=== PATIENT | male | born 1950 | race Caucasian/White ===

== ENCOUNTER 2016-07-28 07:43 | Emergency (ER) | payer SELFPAY ==
[~2016-07-28 07:43] MED LIST: MEDROL DOSEPAK4 MG PO
[2016-07-28 07:53] VITALS: BP 206/90
[2016-07-28 08:20] LABS: BASO # 0.2 10*3/uL (0.0-0.1); BASO % 1.4 % (0.0-1.0); EOS # 0.3 10*3/uL (0.0-0.4); EOS % 2.1 % (1.0-4.0); HEMATOCRIT 46.2 % (42.0-52.0); HEMOGLOBIN 15.5 g/dl (14.0-18.0); IG # 0.1 10*3/uL (0.0-0.1); LYMPH % 8.2 % (27.0-41.0); MEAN CELL VOLUME 84.2 fl (80.0-94.0); MEAN CORPUSCULAR HGB 28.2 pg (27.0-31.0); MEAN CORPUSCULAR HGB CONC 33.5 g/dl (33.0-37.0); MEAN PLATELET VOLUME 11.1 fl (9.6-12.3); MONO # 0.9 10*3/uL (0.1-1.0); MONO % 7.1 % (3.0-9.0); NEUT # 10.1 10*3/uL (2.3-7.9); NEUT % 80.6 % (47.0-73.0); PLATELET COUNT AUTOMATED 343 10*3/uL (130-400); RED BLOOD COUNT 5.49 10*6/uL (4.50-5.90); RED CELL DISTRI WIDTH 12.9 % (0-14.5); WHITE BLOOD COUNT 12.5 10*3/uL (4.8-10.8)
[2016-07-28 08:38] LABS: MAGNESIUM 2.1 mg/dL (1.5-2.1)
[2016-07-28 08:40] LABS: TROPONIN I 0.079 ng/ml (<0.045)
[2016-07-28] MEDS ORDERED: METFORMIN500 MG PO (08:47)
[2016-07-28] MEDS ORDERED: HYDROCHLOROTHIA25 M1 PO (08:48)
[2016-07-28] MEDS ORDERED: GLIPIZIDE10 M2 PO (08:49)
[2016-07-28] MEDS ORDERED: NORVASC5 MG PO (08:49)
[2016-07-28] MEDS ORDERED: ATENOLOL25 MG PO (08:50)
== END 2016-07-28 11:07 | disposition short-term general hospital (02) ==
LOC: ED 07:43
PROVIDERS: Emergency Medicine
DX: G45.9 Transient cerebral ischemic attack, unspecified (principal); R79.89 Other specified abnormal findings of blood chemistry; I25.2 Old myocardial infarction; I10 Essential (primary) hypertension; Z91.040 Latex allergy status; Z79.899 Other long term (current) drug therapy

== ENCOUNTER 2017-07-11 12:14 | Emergency (ER) | payer MEDICARE, OTHER ==
[~2017-07-11] VITALS: Ht 180 cm; Wt 86.2 kg
[~2017-07-11 12:14] MED LIST changes: +ATENOLOL25 MG PO; +GLIPIZIDE10 M2 PO; +HYDROCHLOROTHIA25 M1 PO; +METFORMIN500 MG PO; +NORVASC5 MG PO
[2017-07-11 12:23] VITALS: BP 142/73
[2017-07-11 12:39] LABS: BASO # 0.2 10*3/uL (0.0-0.1); BASO % 1.7 % (0.0-1.0); EOS # 0.3 10*3/uL (0.0-0.4); HEMATOCRIT 45.3 % (42.0-52.0); HEMOGLOBIN 15.2 g/dl (14.0-18.0); LYMPH # 1.7 10*3/uL (1.3-4.4); LYMPH % 19.1 % (27.0-41.0); MEAN CELL VOLUME 83.6 fl (80.0-94.0); MEAN CORPUSCULAR HGB CONC 33.6 g/dl (33.0-37.0); MEAN PLATELET VOLUME 10.4 fl (9.6-12.3); MONO # 0.7 10*3/uL (0.1-1.0); MONO % 7.3 % (3.0-9.0); NEUT # 6.1 10*3/uL (2.3-7.9); NEUT % 68.6 % (47.0-73.0); PLATELET COUNT AUTOMATED 423 10*3/uL (130-400); RED BLOOD COUNT 5.42 10*6/uL (4.50-5.90); RED CELL DISTRI WIDTH 13.2 % (0-14.5); WHITE BLOOD COUNT 8.9 10*3/uL (4.8-10.8)
[2017-07-11 12:55] LABS: ALBUMIN 4.2 gm/dl (3.1-4.5); ALKALINE PHOSPHATASE 90 U/L (45-117); BUN 25 mg/dl (7-24); CHLORIDE 100 mmol/L (98-107); CREATININE 1.78 mg/dL (0.70-1.30); POTASSIUM 3.3 mmol/L (3.5-5.1); SGOT/AST 14 IU/L (3-35); SGPT/ALT 22 U/L (12-78); SODIUM 137 mmol/L (136-145); TOTAL PROTEIN 8.5 gm/dL (6.4-8.2)
[2017-07-11 13:03] LABS: ETHYL ALCOHOL < 3.0 mg/dl (<3); THYROID STIM HORMONE (HS) 0.406 uIU/ml (0.358-4.75)
[2017-07-11 13:17] LABS: URINE AMPHETAMINES < 1000 (1000ng/ml); URINE BARBITURATES < 200 (200ng/ml); URINE BENZODIAZEPINES < 200 (200ng/ml); URINE CANNABINOIDS (THC) < 50 (50ng/ml); URINE COCAINE < 300 (300ng/ml); URINE METHADONE < 300 (300ng/ml); URINE OPIATES < 300 (300ng/ml)
[2017-07-11 13:21] LABS: URINE PHENCYCLIDINE < 25 (25ng/ml)
== END 2017-07-11 14:55 | disposition home or self-care (01) ==
LOC: ED 12:14
PROVIDERS: Emergency Medicine
DX: F32.9 Major depressive disorder, single episode, unspecified (principal); R45.851 Suicidal ideations; I12.9 Hypertensive chronic kidney disease with stage 1 through stage 4 chronic kidney disease, or unspecified chronic kidney disease; E11.22 Type 2 diabetes mellitus with diabetic chronic kidney disease; N18.3 Chronic kidney disease, stage 3 (moderate); I25.10 Atherosclerotic heart disease of native coronary artery without angina pectoris; Z86.73 Personal history of transient ischemic attack (TIA), and cerebral infarction without residual deficits; Z95.5 Presence of coronary angioplasty implant and graft; Z79.899 Other long term (current) drug therapy; Z90.89 Acquired absence of other organs

== ENCOUNTER 2017-08-28 12:31 | Inpatient (IN) | payer MEDICARE, OTHER ==
[2017-08-28] VITALS (9 sets, daily range): BP systolic 151–204; BP diastolic 80–103
[~2017-08-28] VITALS: Ht 182.9 cm; Wt 89.6 kg
--- NOTE | ~2017-08-28 | EKG ---
[place], [place] ELECTROCARDIOGRAM REPORT NAME: ANGELINA DISLA UNIT #: [id number] ROOM: 405 DOCTOR: MEAGAN JOSHI MD BIRTHDATE: [birth year] DOS: 08/28/2017 ECG at 1522 hours. Normal sinus rhythm at 73 beats per minute. Borderline measurement for first-degree heart block. Consider left ventricular hypertrophy. The left anterior hemiblock. An abnormal ECG. No significant change from an ECG done at 1235 hours of the same day. MEAGAN JOSHI MD CM:EKGRPT:ELECTROCARDIOGRAM REPORT 0921 1402 MEAGAN JOSHI MD
--- NOTE | ~2017-08-28 | EKG ---
[place], [place] ELECTROCARDIOGRAM REPORT NAME: ANGELINA DISLA UNIT #: [id number] ROOM: 405 DOCTOR: MEAGAN JOSHI MD BIRTHDATE: [birth year] DOS: 08/28/2017 TIME: 1235 hours. Normal sinus rhythm at 80 beats per minute. Nonspecific ST-T wave changes in lead I, aVL and V6. Left anterior hemiblock. An abnormal ECG. No previous tracing is available for comparison. MEAGAN JOSHI MD CM:EKGRPT:ELECTROCARDIOGRAM REPORT 0921 1256 MEAGAN JOSHI MD
--- NOTE | ~2017-08-28 | EKG ---
[place], [place] ELECTROCARDIOGRAM REPORT NAME: ANGELINA DISLA UNIT #: [id number] ROOM: 405 DOCTOR: MEAGAN JOSHI MD BIRTHDATE: [birth year] DOS: 08/28/2017 ECG at 1900 hours. Normal sinus rhythm at 78 beats per minute. First-degree heart block. Left ventricular hypertrophy shoulder be considered. The left anterior hemiblock. An abnormal ECG. No significant change from an ECG done at 1522 hours of the same day. MEAGAN JOSHI MD CM:EKGRPT:ELECTROCARDIOGRAM REPORT 0921 1402 MEAGAN JOSHI MD
[2017-08-28 12:57] LABS: BASO # 0.2 10*3/uL (0.0-0.1); BASO % 1.9 % (0.0-1.0); EOS # 0.6 10*3/uL (0.0-0.4); EOS % 6.6 % (1.0-4.0); HEMATOCRIT 43.6 % (42.0-52.0); HEMOGLOBIN 14.2 g/dl (14.0-18.0); LYMPH # 1.9 10*3/uL (1.3-4.4); LYMPH % 22.4 % (27.0-41.0); MEAN CORPUSCULAR HGB CONC 32.6 g/dl (33.0-37.0); MEAN PLATELET VOLUME 10.3 fl (9.6-12.3); MONO # 0.7 10*3/uL (0.1-1.0); MONO % 8.5 % (3.0-9.0); NEUT % 59.8 % (47.0-73.0); PLATELET COUNT AUTOMATED 371 10*3/uL (130-400); RED BLOOD COUNT 5.07 10*6/uL (4.50-5.90); RED CELL DISTRI WIDTH 13.8 % (0-14.5); WHITE BLOOD COUNT 8.3 10*3/uL (4.8-10.8)
[2017-08-28 13:05] LABS: ACT PARTIAL THROMBO TIME 24.8 SECONDS (20.8-31.5); INTERNATIONAL NORM RATIO 0.9 (2.0-3.5)
[2017-08-28 13:12] LABS: ALBUMIN 3.9 gm/dl (3.1-4.5); CREATININE 1.54 mg/dL (0.70-1.30); POTASSIUM 4.1 mmol/L (3.5-5.1); TOTAL PROTEIN 7.8 gm/dL (6.4-8.2)
[2017-08-28 13:13] LABS: TROPONIN I 0.03 ng/ml (<0.045)
[2017-08-28] MEDS ORDERED: NORVASC10 MG PO (15:00)
[2017-08-29] VITALS (7 sets, daily range): BP systolic 110–192; BP diastolic 71–90
[2017-08-29 07:08] LABS: BASO # 0.2 10*3/uL (0.0-0.1); BASO % 2.2 % (0.0-1.0); EOS # 0.7 10*3/uL (0.0-0.4); EOS % 10.5 % (1.0-4.0); HEMOGLOBIN 14.3 g/dl (14.0-18.0); LYMPH # 2.1 10*3/uL (1.3-4.4); LYMPH % 31.1 % (27.0-41.0); MEAN CELL VOLUME 86.8 fl (80.0-94.0); MEAN CORPUSCULAR HGB 28.2 pg (27.0-31.0); MEAN CORPUSCULAR HGB CONC 32.5 g/dl (33.0-37.0); MEAN PLATELET VOLUME 10.5 fl (9.6-12.3); MONO # 0.8 10*3/uL (0.1-1.0); MONO % 11.9 % (3.0-9.0); NEUT % 43.7 % (47.0-73.0); PLATELET COUNT AUTOMATED 349 10*3/uL (130-400); RED BLOOD COUNT 5.07 10*6/uL (4.50-5.90); RED CELL DISTRI WIDTH 13.7 % (0-14.5); WHITE BLOOD COUNT 6.9 10*3/uL (4.8-10.8)
[2017-08-29 07:48] LABS: ALBUMIN 3.7 gm/dl (3.1-4.5); BUN 22 mg/dl (7-24); CHLORIDE 106 mmol/L (98-107); CHOLESTEROL 168 mg/dL (<200); PHOSPHOROUS 3.1 mg/dL (2.5-4.9); POTASSIUM 3.6 mmol/L (3.5-5.1); SGOT/AST 10 IU/L (3-35); SGPT/ALT 18 U/L (12-78); SODIUM 141 mmol/L (136-145); TOTAL PROTEIN 7.5 gm/dL (6.4-8.2); TRIGLYCERIDES 135 mg/dl (<150); VLDL CHOLESTEROL 27 mg/dL (6-40)
[2017-08-29 07:49] LABS: ALKALINE PHOSPHATASE 82 U/L (45-117); HDL CHOLESTEROL 37 mg/dl (40-60); LDL CHOLESTEROL 104 mg/dL (9-159)
[2017-08-30] VITALS: BP 138/85
[2017-08-30 08:00] VITALS: BP 175/89
[2017-08-30] MEDS ORDERED: LISINOPRIL10 M1 PO (10:45)
[2017-08-30] MEDS ORDERED: AMLODIPINE BESY10 MG PO (10:45)
== END 2017-08-30 11:35 | disposition home or self-care (01) | DRG 205 ==
LOC: ED 12:31 → EDHOLD 13:54 → 4E 13:54
PROVIDERS: Emergency Medicine; Family Medicine
DX: M94.0 Chondrocostal junction syndrome [Tietze] (principal); J18.9 Pneumonia, unspecified organism; N17.0 Acute kidney failure with tubular necrosis; N18.3 Chronic kidney disease, stage 3 (moderate); E87.8 Other disorders of electrolyte and fluid balance, not elsewhere classified; I16.1 Hypertensive emergency; E11.65 Type 2 diabetes mellitus with hyperglycemia; K21.9 Gastro-esophageal reflux disease without esophagitis; F41.9 Anxiety disorder, unspecified; I12.9 Hypertensive chronic kidney disease with stage 1 through stage 4 chronic kidney disease, or unspecified chronic kidney disease; F32.9 Major depressive disorder, single episode, unspecified; Z86.73 Personal history of transient ischemic attack (TIA), and cerebral infarction without residual deficits; Z79.84 Long term (current) use of oral hypoglycemic drugs; Z79.899 Other long term (current) drug therapy; Z98.52 Vasectomy status; Z80.0 Family history of malignant neoplasm of digestive organs; Z80.1 Family history of malignant neoplasm of trachea, bronchus and lung

== ENCOUNTER → 2017-08-31 | Outpatient (CLI) | payer MEDICARE, OTHER ==
[~2017-08-31] MED LIST changes: +AMLODIPINE BESY10 MG PO; +LISINOPRIL10 M1 PO; +NORVASC10 MG PO
--- NOTE | ~2017-08-31 | ST ---
[place], [place] EXERCISE STRESS TEST REPORT [id number] UN[facility] #: [id number] ROOM: DOCTOR: AURY EDMOND MD BIRTHDATE: [birth year] DOS: 08/31/2017 LEXISCAN PORTION OF THE LEXISCAN CARDIOLITE Baseline cardiogram, sinus with nonspecific ST-T changes. With Lexiscan, no new EKG changes. No chest pain. Blood pressure and heart rate response was normal. Nuclear images will be reported separately. AURY EDMOND MD CM:STRESS:EXERCISE STRESS TEST REPORT 1 07 AURY EDMOND MD
== END | disposition home or self-care (01) ==
LOC: CARD 05:22
DX: R07.2 Precordial pain (principal); R53.81 Other malaise

== ENCOUNTER 2017-11-11 20:24 | Inpatient (IN) | payer MEDICARE, OTHER ==
[~2017-11-11] VITALS: Ht 175.2 cm; Wt 84.9 kg
--- NOTE | ~2017-11-11 | PR ---
[place], [place] PROGRESS NOTE NAME: ANGELINA DISLA [facility] #: [id number] UNIT #: [id number] ROOM: 317 DOCTOR: BRUCE DURON MD BIRTHDATE: [birth year] DOS: 11/14/2017 The patient has been admitted to the psych unit with major depression and he is also having diabetes, ASHD, hypertension. He is feeling better now. His mental condition is better. His depression is feeling better. He says he is eating good. He denies any chest pain, no difficulty breathing, no nausea, no vomiting. He is having no urinary problem and/or bowel problem. No dizziness. Medically, he is feeling very stable. His vital signs are stable and he is not having any problem. His chest is clear. Heart is regular. Abdomen is soft. He has past history of diabetes mellitus, hypertension, heart disease, history of angioplasty done 30 years ago. At present, medically he is stable. BRUCE DURON MD CM:PNTRANS [id number] BRUCE DURON MD 11/15/17 0153 interface
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
--- NOTE | ~2017-11-11 | PR ---
[place], [place] PROGRESS NOTE [id number] UN[facility] #: [id number] ROOM: 317 DOCTOR: DELON, PHD AKHTAR BIRTHDATE: [birth year] DOS: 11/15/2017 I met the patient for individual psychotherapy. The patient reported an improvement in his mood since being in the hospital and away from his . Mood was depressed and affect was restricted. He firmly denied suicidal and homicidal ideation. Explored the unhealthy patterns within his marriage and adjustment to disability issues. Utilize CBT and supportive therapy interventions. The patient appeared to benefit. PLAN: To continue as needed. Makayla Garrido, PhD CM:PNTRANS [phone] PHD HERMILO GARRIDO 11/16/17 0432 interface
--- NOTE | ~2017-11-11 | PR ---
[place], [place] PROGRESS NOTE [id number] #: [id number] ROOM: 317 DOCTOR: HERMILO FARIAS MD BIRTHDATE: [birth year] DOS: 11/13/2017 CHIEF COMPLAINT: "I think I feel a little better, do you know when I can go home." SUMMARY OF THE VISIT: The patient was interviewed as he sat at the edge of his bed. He reports that he did sleep a little better and believes he is feeling slightly better. He did state that he did not feel he needed to go to a [facility]. He felt he had enough funds that if he absolutely needed to leave his house he could, but he does believe that he can build some bridges and return home with his if need be. He reports no side effects from the medicines, noting no sedation, somnolence, extrapyramidal symptoms or tardive dyskinesia. MENTAL STATUS: He is alert and oriented. Mood does still seem to be depressed, but is trending toward improvement. Affect is more appropriate. There is no valerie or hypomania. There is no gross psychosis. Memory is intact. PLAN: We will check a valproic acid level on Wednesday morning. Continue his same current psychotropics, engage in individual and nash milieu activity, returning then to the least restrictive environment when psychiatrically stable. HERMILO FARIAS MD CM:PNTRANS 0814 1549 HERMILO FARIAS MD 11/13/17 1546 interface
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
--- NOTE | ~2017-11-11 | PR ---
[place], [place] PROGRESS NOTE [id number] UN[facility] #: [id number] ROOM: 317 DOCTOR: HERMILO FARIAS MD BIRTHDATE: [birth year] DOS: 11/15/2017 CHIEF COMPLAINT: "I think I feel okay, although I am overwhelmed. I have no place to go." SUMMARY OF THE VISIT: The patient was interviewed as he was sitting at the edge of his bed. He engaged readily in conversation and reported that he is feeling slightly better, but is overwhelmed because of his social situation and possible lack of a place to go. He reports no side effects from the medicines and feels that they are starting to work and stabilize his mood. He is sleeping well and eating well. He voices no other issues. MENTAL STATUS: He is alert and oriented to person, place and time. Mood does seem to be significantly trending towards euthymia. Affect is more appropriate. There is no valerie or hypomania. There are no gross psychotic symptoms. Short, intermediate, and long-term memory are fully intact. PLAN: His valproic acid level is low at 28.1. I will go ahead and double his Depakote dose from 250 mg 3 times a day to 500 mg 3 times a day to impact positively on mood and decrease any impulsive behavior. Engage in individual and nash milieu activity. Social service will talk to him about possible options he has regarding his living situation and we will discharge then when stable. HERMILO FARIAS MD CM:PNTRANS 5 21 HERMILO FARIAS MD 11/15/172219 interface
[2017-11-11 22:00] VITALS: BP 173/87
[2017-11-11] MEDS ORDERED: LUMIGAN50 DRP OPH (22:12)
[2017-11-11] MEDS ORDERED: SIMBRINZA 1%-0.28 ML OP (22:13)
[2017-11-12 06:48] LABS: BASO # 0.1 10*3/uL (0.0-0.1); BASO % 1.3 % (0.0-1.0); EOS # 0.3 10*3/uL (0.0-0.4); EOS % 3.1 % (1.0-4.0); HEMATOCRIT 43.4 % (42.0-52.0); HEMOGLOBIN 14.5 g/dl (14.0-18.0); LYMPH # 2.2 10*3/uL (1.3-4.4); LYMPH % 21.2 % (27.0-41.0); MEAN CELL VOLUME 85.4 fl (80.0-94.0); MEAN CORPUSCULAR HGB 28.5 pg (27.0-31.0); MEAN CORPUSCULAR HGB CONC 33.4 g/dl (33.0-37.0); MEAN PLATELET VOLUME 10.9 fl (9.6-12.3); MONO # 1.2 10*3/uL (0.1-1.0); MONO % 11.1 % (3.0-9.0); NEUT # 6.6 10*3/uL (2.3-7.9); NEUT % 63.1 % (47.0-73.0); PLATELET COUNT AUTOMATED 365 10*3/uL (130-400); RED BLOOD COUNT 5.08 10*6/uL (4.50-5.90); RED CELL DISTRI WIDTH 13.8 % (0-14.5); WHITE BLOOD COUNT 10.5 10*3/uL (4.8-10.8)
[2017-11-12 07:11] VITALS: BP 172/80
[2017-11-12 07:16] LABS: ALBUMIN 4.4 gm/dl (3.1-4.5); CREATININE 1.44 mg/dL (0.70-1.30); POTASSIUM 3.6 mmol/L (3.5-5.1)
[2017-11-12 07:18] LABS: TOTAL PROTEIN 8.7 gm/dL (6.4-8.2)
[2017-11-12 07:51] VITALS: BP 172/80
[2017-11-12 08:13] LABS: VITAMIN D, 25-HYDROXY 25.2 ng/mL (30-100)
[2017-11-12 20:02] VITALS: BP 127/75
[2017-11-13 07:57] VITALS: BP 128/79
[2017-11-13 19:49] VITALS: BP 116/74
[2017-11-14 07:50] VITALS: BP 116/68
[2017-11-14 20:04] VITALS: BP 154/81
[2017-11-15 07:45] VITALS: BP 150/83
[2017-11-15 19:29] VITALS: BP 150/75
[2017-11-16 07:35] VITALS: BP 146/80
[2017-11-16] MEDS ORDERED: Vitamin D PO (09:02)
[2017-11-16] MEDS ORDERED: MIRTAZAPINE15 M2 PO (09:02)
[2017-11-16] MEDS ORDERED: DIVALPROEX SOD500 MG PO (09:02)
== END 2017-11-16 13:00 | disposition home or self-care (01) | DRG 883 ==
LOC: 3N 20:24
PROVIDERS: Psychiatry & Neurology Psychiatry
DX: F63.81 Intermittent explosive disorder (principal); F23 Brief psychotic disorder; R45.851 Suicidal ideations; F33.9 Major depressive disorder, recurrent, unspecified; F41.1 Generalized anxiety disorder; I25.10 Atherosclerotic heart disease of native coronary artery without angina pectoris; D64.9 Anemia, unspecified; E87.8 Other disorders of electrolyte and fluid balance, not elsewhere classified; E11.65 Type 2 diabetes mellitus with hyperglycemia; N18.3 Chronic kidney disease, stage 3 (moderate); I12.9 Hypertensive chronic kidney disease with stage 1 through stage 4 chronic kidney disease, or unspecified chronic kidney disease; E11.22 Type 2 diabetes mellitus with diabetic chronic kidney disease; H40.9 Unspecified glaucoma; Z95.5 Presence of coronary angioplasty implant and graft; Z98.52 Vasectomy status; Z98.49 Cataract extraction status, unspecified eye; Z86.73 Personal history of transient ischemic attack (TIA), and cerebral infarction without residual deficits; Z80.1 Family history of malignant neoplasm of trachea, bronchus and lung; Z80.0 Family history of malignant neoplasm of digestive organs; Z79.899 Other long term (current) drug therapy

== ENCOUNTER 2018-02-26 09:53 | Emergency (ER) | payer MEDICARE ==
[~2018-02-26] VITALS: Ht 182.8 cm; Wt 88.9 kg
--- NOTE | ~2018-02-26 | EKG ---
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
[~2018-02-26 09:53] MED LIST changes: +DIVALPROEX SOD500 MG PO; +LUMIGAN50 DRP OPH; +MIRTAZAPINE15 M2 PO; +SIMBRINZA 1%-0.28 ML OP; +Vitamin D PO
[2018-02-26 10:06] LABS: BASO # 0.2 10*3/uL (0.0-0.1); BASO % 2.1 % (0.0-1.0); EOS # 0.6 10*3/uL (0.0-0.4); EOS % 6.1 % (1.0-4.0); HEMATOCRIT 41.9 % (42.0-52.0); HEMOGLOBIN 13.9 g/dl (14.0-18.0); LYMPH % 10.6 % (27.0-41.0); MEAN CELL VOLUME 88.2 fl (80.0-94.0); MEAN CORPUSCULAR HGB 29.3 pg (27.0-31.0); MEAN CORPUSCULAR HGB CONC 33.2 g/dl (33.0-37.0); MEAN PLATELET VOLUME 11.3 fl (9.6-12.3); MONO # 1.1 10*3/uL (0.1-1.0); MONO % 10.9 % (3.0-9.0); NEUT # 6.8 10*3/uL (2.3-7.9); PLATELET COUNT AUTOMATED 305 10*3/uL (130-400); RED BLOOD COUNT 4.75 10*6/uL (4.50-5.90); RED CELL DISTRI WIDTH 13.2 % (0-14.5); WHITE BLOOD COUNT 9.7 10*3/uL (4.8-10.8)
[2018-02-26 10:22] LABS: ALBUMIN 3.8 gm/dl (3.1-4.5); CREATININE 1.6 mg/dL (0.70-1.30); TOTAL PROTEIN 7.6 gm/dL (6.4-8.2); TROPONIN I 0.031 ng/ml (<0.045)
[2018-02-26 10:27] LABS: ACT PARTIAL THROMBO TIME 24.2 SECONDS (20.8-31.5)
[2018-02-26 10:51] VITALS: BP 162/80
[2018-02-26] MEDS ORDERED: VIBRAMYCIN100 MG PO (11:18)
== END 2018-02-26 11:27 | disposition home or self-care (01) ==
LOC: ED 09:53
PROVIDERS: Emergency Medicine
DX: J40 Bronchitis, not specified as acute or chronic (principal); I25.10 Atherosclerotic heart disease of native coronary artery without angina pectoris; E11.9 Type 2 diabetes mellitus without complications; I12.9 Hypertensive chronic kidney disease with stage 1 through stage 4 chronic kidney disease, or unspecified chronic kidney disease; E11.22 Type 2 diabetes mellitus with diabetic chronic kidney disease; N18.3 Chronic kidney disease, stage 3 (moderate); Z86.73 Personal history of transient ischemic attack (TIA), and cerebral infarction without residual deficits; Z79.899 Other long term (current) drug therapy

== ENCOUNTER → 2018-12-09 | Outpatient (CLI) | payer OTHER ==
[~2018-12-09] MED LIST changes: +VIBRAMYCIN100 MG PO
[2018-12-09 10:00] LABS: BASO # 0.2 10*3/uL (0.0-0.1); BASO % 1.8 % (0.0-1.0); EOS # 0.2 10*3/uL (0.0-0.4); EOS % 2.5 % (1.0-4.0); HEMATOCRIT 49.2 % (42.0-52.0); LYMPH # 1.5 10*3/uL (1.3-4.4); LYMPH % 17.6 % (27.0-41.0); MEAN CELL VOLUME 87.9 fl (80.0-94.0); MEAN CORPUSCULAR HGB 28.6 pg (27.0-31.0); MEAN CORPUSCULAR HGB CONC 32.5 g/dl (33.0-37.0); MEAN PLATELET VOLUME 10.7 fl (9.6-12.3); MONO # 0.9 10*3/uL (0.1-1.0); MONO % 10.7 % (3.0-9.0); NEUT # 5.8 10*3/uL (2.3-7.9); NEUT % 66.6 % (47.0-73.0); PLATELET COUNT AUTOMATED 326 10*3/uL (130-400); RED CELL DISTRI WIDTH 13.2 % (0-14.5); WHITE BLOOD COUNT 8.8 10*3/uL (4.8-10.8)
[2018-12-09 10:28] LABS: ALBUMIN 4.1 gm/dl (3.1-4.5); CREATININE 1.69 mg/dL (0.70-1.30); POTASSIUM 4.3 mmol/L (3.5-5.1); TOTAL PROTEIN 8.4 gm/dL (6.4-8.2)
[2018-12-09 10:53] LABS: VITAMIN D, 25-HYDROXY 26.5 ng/mL (30-100)
== END | disposition home or self-care (01) ==
LOC: RESCLI 00:52
PROVIDERS: Student in an Organized Health Care Education/Training Program
DX: I12.9 Hypertensive chronic kidney disease with stage 1 through stage 4 chronic kidney disease, or unspecified chronic kidney disease (principal); E11.22 Type 2 diabetes mellitus with diabetic chronic kidney disease; N18.3 Chronic kidney disease, stage 3 (moderate); E78.5 Hyperlipidemia, unspecified; N52.9 Male erectile dysfunction, unspecified; Z79.899 Other long term (current) drug therapy

== ENCOUNTER → 2019-03-21 | Outpatient (CLI) | payer OTHER | END | disposition home or self-care (01) | LOC: RESCLI 02:30 | DX: I12.9 Hypertensive chronic kidney disease with stage 1 through stage 4 chronic kidney disease, or unspecified chronic kidney disease (principal); E11.22 Type 2 diabetes mellitus with diabetic chronic kidney disease; N18.3 Chronic kidney disease, stage 3 (moderate); E78.5 Hyperlipidemia, unspecified; N52.9 Male erectile dysfunction, unspecified; Z79.899 Other long term (current) drug therapy; Z88.8 Allergy status to other drugs, medicaments and biological substances ==

== ENCOUNTER 2020-06-29 11:25 | Inpatient (IN) | payer OTHER ==
[2020-06-29] VITALS (9 sets, daily range): BP systolic 162–190; BP diastolic 90–103
[~2020-06-29] VITALS: Ht 182.8 cm; Wt 87.6 kg
[2020-06-29 12:05] LABS: BASO # 0.1 10*3/uL (0.0-0.1); BASO % 0.7 % (0.0-1.0); HEMATOCRIT 46.6 % (42.0-52.0); LYMPH # 0.5 10*3/uL (1.3-4.4); MEAN CELL VOLUME 85.5 fl (80.0-94.0); MEAN CORPUSCULAR HGB 28.3 pg (27.0-31.0); MEAN PLATELET VOLUME 10.4 fl (9.6-12.3); MONO # 0.4 10*3/uL (0.1-1.0); MONO % 4.7 % (3.0-9.0); NEUT # 7.6 10*3/uL (2.3-7.9); NEUT % 88.3 % (47.0-73.0); PLATELET COUNT AUTOMATED 350 10*3/uL (130-400); RED BLOOD COUNT 5.45 10*6/uL (4.50-5.90); RED CELL DISTRI WIDTH 12.7 % (0-14.5); WHITE BLOOD COUNT 8.7 10*3/uL (4.8-10.8)
[2020-06-29 12:16] LABS: ACT PARTIAL THROMBO TIME 25.1 SECONDS (20.0-32.1)
[2020-06-29 12:21] LABS: ALBUMIN 3.8 gm/dl (3.1-4.5); CREATININE 1.67 mg/dL (0.70-1.30); POTASSIUM 4.2 mmol/L (3.5-5.1)
[2020-06-29 12:22] LABS: TROPONIN I 0.041 ng/ml (<0.045)
[2020-06-29 13:46] LABS: BILIRUBIN Negative (Negative); BLOOD Negative (Negative); CLARITY Clear (Clear); COLOR Yellow (Yellow); GLUCOSE 3+ (Negative); KETONE Trace (Negative); LEUKO ESTERASE Negative (Negative); NITRITE Negative (Negative); SPECIFIC GRAVITY >= 1.030 (1.001-1.030)
[2020-06-29 14:09] LABS: WBC 0-2 wbc/hpf (0-5)
[2020-06-30 04:04] VITALS: BP 113/71
[2020-06-30 05:37] LABS: ALBUMIN 3.4 gm/dl (3.1-4.5); CREATININE 1.8 mg/dL (0.70-1.30); POTASSIUM 3.8 mmol/L (3.5-5.1); TOTAL PROTEIN 7.4 gm/dL (6.4-8.2)
[2020-06-30 06:00] LABS: BASO % 0.2 % (0.0-1.0); EOS # 0.1 10*3/uL (0.0-0.4); EOS % 0.4 % (1.0-4.0); HEMATOCRIT 44.2 % (42.0-52.0); LYMPH # 0.7 10*3/uL (1.3-4.4); LYMPH % 3.8 % (27.0-41.0); MEAN CELL VOLUME 85.5 fl (80.0-94.0); MEAN CORPUSCULAR HGB 28.6 pg (27.0-31.0); MEAN CORPUSCULAR HGB CONC 33.5 g/dl (33.0-37.0); MONO % 5.2 % (3.0-9.0); NEUT # 16.9 10*3/uL (2.3-7.9); NEUT % 89.9 % (47.0-73.0); PLATELET COUNT AUTOMATED 335 10*3/uL (130-400); RED BLOOD COUNT 5.17 10*6/uL (4.50-5.90); RED CELL DISTRI WIDTH 12.7 % (0-14.5); WHITE BLOOD COUNT 18.8 10*3/uL (4.8-10.8)
[2020-06-30 06:24] VITALS: BP 120/67
[2020-06-30 08:43] VITALS: BP 155/80
[2020-06-30 20:14] VITALS: BP 115/86
[2020-06-30] MEDS ORDERED: AKTOB 5 ML5 ML OS (21:35)
[2020-07-01] VITALS (9 sets, daily range): BP systolic 143–185; BP diastolic 80–100
[2020-07-01 06:09] LABS: BUN 28 mg/dl (7-24); CHLORIDE 107 mmol/L (98-107); CREATININE 1.42 mg/dL (0.70-1.30); POTASSIUM 3.5 mmol/L (3.5-5.1); SODIUM 141 mmol/L (136-145)
[2020-07-01 06:23] LABS: BASO # 0.1 10*3/uL (0.0-0.1); EOS # 0.2 10*3/uL (0.0-0.4); EOS % 1.4 % (1.0-4.0); LYMPH # 1.2 10*3/uL (1.3-4.4); MEAN CELL VOLUME 85.2 fl (80.0-94.0); MEAN CORPUSCULAR HGB 28.3 pg (27.0-31.0); MEAN CORPUSCULAR HGB CONC 33.3 g/dl (33.0-37.0); MEAN PLATELET VOLUME 11.2 fl (9.6-12.3); MONO # 1.1 10*3/uL (0.1-1.0); MONO % 9.4 % (3.0-9.0); NEUT # 9.2 10*3/uL (2.3-7.9); NEUT % 77.9 % (47.0-73.0); PLATELET COUNT AUTOMATED 341 10*3/uL (130-400); RED CELL DISTRI WIDTH 12.9 % (0-14.5); WHITE BLOOD COUNT 11.8 10*3/uL (4.8-10.8)
[2020-07-02] VITALS: BP 160/78
[2020-07-02 08:00] VITALS: BP 180/90
[2020-07-02 12:00] VITALS: BP 186/90
[2020-07-02] MEDS ORDERED: ALPHAGAN P 10 M10 M1 OPH (15:08)
[2020-07-02 16:00] VITALS: BP 182/98
[2020-07-02 20:00] VITALS: BP 172/97
[2020-07-03] VITALS (11 sets, daily range): BP systolic 138–192; BP diastolic 69–88
[2020-07-03 06:49] LABS: BASO # 0.1 10*3/uL (0.0-0.1); BASO % 1.2 % (0.0-1.0); EOS # 0.2 10*3/uL (0.0-0.4); EOS % 1.7 % (1.0-4.0); HEMATOCRIT 44.3 % (42.0-52.0); LYMPH % 9.3 % (27.0-41.0); MEAN CORPUSCULAR HGB 28.5 pg (27.0-31.0); MEAN CORPUSCULAR HGB CONC 33.2 g/dl (33.0-37.0); MEAN PLATELET VOLUME 10.6 fl (9.6-12.3); MONO # 0.9 10*3/uL (0.1-1.0); MONO % 8.4 % (3.0-9.0); NEUT # 8.8 10*3/uL (2.3-7.9); NEUT % 78.8 % (47.0-73.0); PLATELET COUNT AUTOMATED 376 10*3/uL (130-400); RED BLOOD COUNT 5.15 10*6/uL (4.50-5.90); RED CELL DISTRI WIDTH 13.2 % (0-14.5); WHITE BLOOD COUNT 11.1 10*3/uL (4.8-10.8)
[2020-07-03 07:09] LABS: ALKALINE PHOSPHATASE 81 U/L (45-117); BUN 28 mg/dl (7-24); CHLORIDE 114 mmol/L (98-107); CREATININE 1.33 mg/dL (0.70-1.30); POTASSIUM 3.5 mmol/L (3.5-5.1); SGOT/AST 14 IU/L (3-35); SGPT/ALT 26 U/L (12-78); SODIUM 145 mmol/L (136-145); TOTAL PROTEIN 6.9 gm/dL (6.4-8.2)
[2020-07-04] VITALS (7 sets, daily range): BP systolic 129–190; BP diastolic 61–93
[2020-07-04 06:21] LABS: BASO # 0.1 10*3/uL (0.0-0.1); EOS # 0.4 10*3/uL (0.0-0.4); LYMPH # 1.1 10*3/uL (1.3-4.4); LYMPH % 10.5 % (27.0-41.0); MEAN CELL VOLUME 87.2 fl (80.0-94.0); MEAN CORPUSCULAR HGB 28.1 pg (27.0-31.0); MEAN CORPUSCULAR HGB CONC 32.2 g/dl (33.0-37.0); MEAN PLATELET VOLUME 10.7 fl (9.6-12.3); MONO % 9.7 % (3.0-9.0); NEUT # 7.7 10*3/uL (2.3-7.9); NEUT % 73.6 % (47.0-73.0); PLATELET COUNT AUTOMATED 339 10*3/uL (130-400); RED BLOOD COUNT 5.16 10*6/uL (4.50-5.90); RED CELL DISTRI WIDTH 13.3 % (0-14.5); WHITE BLOOD COUNT 10.5 10*3/uL (4.8-10.8)
[2020-07-04 06:41] LABS: CREATININE 1.43 mg/dL (0.70-1.30); POTASSIUM 3.5 mmol/L (3.5-5.1); TOTAL PROTEIN 6.6 gm/dL (6.4-8.2)
[2020-07-05] VITALS: BP 142/68
[2020-07-05 08:00] VITALS: BP 184/87
[2020-07-05 12:00] VITALS: BP 130/70
[2020-07-05 16:00] VITALS: BP 133/68
[2020-07-05 20:00] VITALS: BP 155/76
[2020-07-06] VITALS: BP 176/84
[2020-07-06 08:00] VITALS: BP 157/77
[2020-07-06 12:00] VITALS: BP 160/74
[2020-07-06 16:00] VITALS: BP 164/62
[2020-07-06 20:00] VITALS: BP 159/87
[2020-07-07] VITALS: BP 161/79
[2020-07-07 06:01] LABS: BASO # 0.1 10*3/uL (0.0-0.1); BASO % 1.3 % (0.0-1.0); EOS # 0.6 10*3/uL (0.0-0.4); EOS % 6.7 % (1.0-4.0); HEMATOCRIT 43.6 % (42.0-52.0); LYMPH # 1.1 10*3/uL (1.3-4.4); LYMPH % 12.3 % (27.0-41.0); MEAN CELL VOLUME 85.7 fl (80.0-94.0); MEAN CORPUSCULAR HGB 28.5 pg (27.0-31.0); MEAN CORPUSCULAR HGB CONC 33.3 g/dl (33.0-37.0); MEAN PLATELET VOLUME 11.5 fl (9.6-12.3); MONO % 10.7 % (3.0-9.0); NEUT # 6.2 10*3/uL (2.3-7.9); NEUT % 67.9 % (47.0-73.0); PLATELET COUNT AUTOMATED 306 10*3/uL (130-400); RED BLOOD COUNT 5.09 10*6/uL (4.50-5.90); WHITE BLOOD COUNT 9.1 10*3/uL (4.8-10.8)
[2020-07-07 06:27] LABS: ALBUMIN 2.7 gm/dl (3.1-4.5); BUN 21 mg/dl (7-24); CHLORIDE 105 mmol/L (98-107); CREATININE 1.29 mg/dL (0.70-1.30); POTASSIUM 3.2 mmol/L (3.5-5.1); SGOT/AST 18 IU/L (3-35); SODIUM 138 mmol/L (136-145)
[2020-07-07 06:28] LABS: ALKALINE PHOSPHATASE 77 U/L (45-117); SGPT/ALT 28 U/L (12-78); TOTAL PROTEIN 6.5 gm/dL (6.4-8.2)
[2020-07-07 08:00] VITALS: BP 117/67
[2020-07-07 12:00] VITALS: BP 122/68
[2020-07-07 16:00] VITALS: BP 130/90
[2020-07-07 20:00] VITALS: BP 153/87
[2020-07-08] VITALS: BP 181/90
[2020-07-08 07:03] LABS: ALBUMIN 3.2 gm/dl (3.1-4.5); ALKALINE PHOSPHATASE 93 U/L (45-117); BUN 26 mg/dl (7-24); CHLORIDE 103 mmol/L (98-107); CREATININE 1.42 mg/dL (0.70-1.30); POTASSIUM 3.4 mmol/L (3.5-5.1); SGOT/AST 29 IU/L (3-35); SGPT/ALT 43 U/L (12-78); SODIUM 139 mmol/L (136-145); TOTAL PROTEIN 7.6 gm/dL (6.4-8.2)
[2020-07-08 07:04] LABS: BASO # 0.2 10*3/uL (0.0-0.1); BASO % 1.5 % (0.0-1.0); EOS # 0.5 10*3/uL (0.0-0.4); EOS % 5.2 % (1.0-4.0); HEMATOCRIT 48.5 % (42.0-52.0); LYMPH # 1.4 10*3/uL (1.3-4.4); LYMPH % 13.7 % (27.0-41.0); MEAN CELL VOLUME 86.8 fl (80.0-94.0); MEAN CORPUSCULAR HGB 28.3 pg (27.0-31.0); MEAN CORPUSCULAR HGB CONC 32.6 g/dl (33.0-37.0); MEAN PLATELET VOLUME 11.3 fl (9.6-12.3); NEUT % 68.4 % (47.0-73.0); PLATELET COUNT AUTOMATED 371 10*3/uL (130-400); RED BLOOD COUNT 5.59 10*6/uL (4.50-5.90); RED CELL DISTRI WIDTH 12.9 % (0-14.5); WHITE BLOOD COUNT 10.3 10*3/uL (4.8-10.8)
[2020-07-08 08:04] VITALS: BP 158/78
[2020-07-08 12:00] VITALS: BP 139/77
[2020-07-08 16:00] VITALS: BP 132/76
[2020-07-08 20:00] VITALS: BP 165/80
[2020-07-09] VITALS: BP 159/83
[2020-07-09 06:48] LABS: BUN 24 mg/dl (7-24); CHLORIDE 104 mmol/L (98-107); POTASSIUM 3.7 mmol/L (3.5-5.1); SODIUM 138 mmol/L (136-145)
[2020-07-09 08:00] VITALS: BP 152/74
[2020-07-09 12:00] VITALS: BP 152/83
[2020-07-09 16:00] VITALS: BP 139/78
[2020-07-09 20:00] VITALS: BP 142/80
[2020-07-10] VITALS: BP 145/84
[2020-07-10 08:00] VITALS: BP 132/69
[2020-07-10 12:00] VITALS: BP 115/50
[2020-07-10 16:00] VITALS: BP 120/62
[2020-07-10 20:00] VITALS: BP 132/72
[2020-07-11] VITALS: BP 139/71
[2020-07-11 08:00] VITALS: BP 107/77
[2020-07-11 12:00] VITALS: BP 114/67
[2020-07-11] MEDS ORDERED: AMLODIPINE BESY10 MG PEG (13:39)
[2020-07-11] MEDS ORDERED: HYDROCHLOROTHIA25 M1 PEG (13:39)
[2020-07-11] MEDS ORDERED: METOCLOPRAMIDE H5 M1 PEG (13:39)
[2020-07-11] MEDS ORDERED: THORAZINE25 MG PEG (13:39)
[2020-07-11] MEDS ORDERED: LISINOPRIL10 M1 PEG (13:39)
[2020-07-11] MEDS ORDERED: Vitamin D PEG (13:39)
[2020-07-11] MEDS ORDERED: ASPIRIN CHILDRE81 MG PEG (13:39)
[2020-07-11] MEDS ORDERED: GLIPIZIDE10 M2 PEG (13:39)
[2020-07-11] MEDS ORDERED: GLUCERNA 1.01500 ML PO (13:45)
[2020-07-11] MEDS ORDERED: GLUCERNA 1.01500 ML PEG (13:53)
[2020-07-11 16:00] VITALS: BP 135/79
== END 2020-07-11 18:08 | DRG 64 ==
LOC: ED 11:25 → EDHOLD 14:53 → 4E 14:53 → EDHOLD 16:15 → 4E 06-30 19:10
PROVIDERS: Emergency Medicine; Family Medicine; Physical Therapist; Registered Nurse; Student in an Organized Health Care Education/Training Program; Surgery; ADMIT Emergency Medicine; ATTEND Emergency Medicine
PROC: 0DH68UZ Insertion of Feeding Device into Stomach, Via Natural or Artificial Opening Endoscopic (ICD-10-PCS; principal; 2020-07-03)
DX: I63.9 Cerebral infarction, unspecified (principal); N17.0 Acute kidney failure with tubular necrosis; J96.01 Acute respiratory failure with hypoxia; E87.1 Hypo-osmolality and hyponatremia; E46 Unspecified protein-calorie malnutrition; I16.0 Hypertensive urgency; E11.22 Type 2 diabetes mellitus with diabetic chronic kidney disease; Z20.822 Contact with and (suspected) exposure to COVID-19; E11.51 Type 2 diabetes mellitus with diabetic peripheral angiopathy without gangrene; I25.10 Atherosclerotic heart disease of native coronary artery without angina pectoris; F41.1 Generalized anxiety disorder; N18.32 Chronic kidney disease, stage 3b; E11.65 Type 2 diabetes mellitus with hyperglycemia; I12.9 Hypertensive chronic kidney disease with stage 1 through stage 4 chronic kidney disease, or unspecified chronic kidney disease; R79.9 Abnormal finding of blood chemistry, unspecified; R62.7 Adult failure to thrive; R80.9 Proteinuria, unspecified; E78.5 Hyperlipidemia, unspecified; Z88.8 Allergy status to other drugs, medicaments and biological substances; Z98.52 Vasectomy status; Z98.42 Cataract extraction status, left eye; Z95.5 Presence of coronary angioplasty implant and graft; Z80.0 Family history of malignant neoplasm of digestive organs; Z68.26 Body mass index [BMI] 26.0-26.9, adult

== ENCOUNTER 2020-07-16 18:51 | Inpatient (IN) | payer OTHER ==
[~2020-07-16] VITALS: Ht 182.8 cm; Wt 92.6 kg
[~2020-07-16 18:51] MED LIST changes: +AKTOB 5 ML5 ML OS; +ALPHAGAN P 10 M10 M1 OPH; +AMLODIPINE BESY10 MG PEG; +ASPIRIN CHILDRE81 MG PEG; +GLIPIZIDE10 M2 PEG; +GLUCERNA 1.01500 ML PEG; +GLUCERNA 1.01500 ML PO; +HYDROCHLOROTHIA25 M1 PEG; +LISINOPRIL10 M1 PEG; +METOCLOPRAMIDE H5 M1 PEG; +THORAZINE25 MG PEG; +Vitamin D PEG
[2020-07-16 19:02] VITALS: BP 105/60
[2020-07-16 19:48] LABS: BASO # 0.1 10*3/uL (0.0-0.1); BASO % 0.5 % (0.0-1.0); EOS % 0.3 % (1.0-4.0); HEMATOCRIT 42.2 % (42.0-52.0); LYMPH # 0.7 10*3/uL (1.3-4.4); MEAN CELL VOLUME 86.8 fl (80.0-94.0); MEAN CORPUSCULAR HGB 28.2 pg (27.0-31.0); MEAN CORPUSCULAR HGB CONC 32.5 g/dl (33.0-37.0); MEAN PLATELET VOLUME 11.2 fl (9.6-12.3); MONO # 1.5 10*3/uL (0.1-1.0); NEUT # 12.1 10*3/uL (2.3-7.9); NEUT % 83.7 % (47.0-73.0); PLATELET COUNT AUTOMATED 349 10*3/uL (130-400); RED BLOOD COUNT 4.86 10*6/uL (4.50-5.90); RED CELL DISTRI WIDTH 13.3 % (0-14.5); WHITE BLOOD COUNT 14.5 10*3/uL (4.8-10.8)
[2020-07-16 20:07] LABS: ALBUMIN 2.9 gm/dl (3.1-4.5); CREATININE 2.43 mg/dL (0.70-1.30); POTASSIUM 3.9 mmol/L (3.5-5.1)
[2020-07-16 20:29] LABS: BILIRUBIN Negative (Negative); BLOOD 3+ (Negative); CLARITY Turbid (Clear); COLOR Dark Yellow (Yellow); GLUCOSE Negative (Negative); KETONE Trace (Negative); LEUKO ESTERASE 2+ (Negative); NITRITE Negative (Negative)
[2020-07-16 20:56] LABS: EPITHELIAL CELLS 16-20; MUCOUS TRACE; RBC 51-100 rbc/hpf (0-2); WBC 16-20 wbc/hpf (0-5)
[2020-07-16 21:15] VITALS: BP 116/80
[2020-07-16 22:56] VITALS: BP 139/78
[2020-07-16 23:30] VITALS: BP 147/83
[2020-07-16] MEDS ORDERED: METOCLOPRAMIDE5 MG PO (23:54)
[2020-07-16] MEDS ORDERED: GLUCOTROL10 MG PO (23:55)
[2020-07-16] MEDS ORDERED: HUMULIN R500 UNIT/1 SQ (23:56)
[2020-07-16] MEDS ORDERED: CHLORPROMAZINE25 M1 PO (23:58)
[2020-07-17 06:09] LABS: HEMATOCRIT 44.9 % (42.0-52.0); MEAN CORPUSCULAR HGB 28.2 pg (27.0-31.0); MEAN CORPUSCULAR HGB CONC 32.1 g/dl (33.0-37.0); MEAN PLATELET VOLUME 12.1 fl (9.6-12.3); PLATELET COUNT AUTOMATED 327 10*3/uL (130-400); RED CELL DISTRI WIDTH 13.5 % (0-14.5); WHITE BLOOD COUNT 12.5 10*3/uL (4.8-10.8)
[2020-07-17 06:16] LABS: ACT PARTIAL THROMBO TIME 25.7 SECONDS (20.0-32.1)
[2020-07-17 06:20] LABS: ALBUMIN 2.9 gm/dl (3.1-4.5); CREATININE 2.18 mg/dL (0.70-1.30); POTASSIUM 4.5 mmol/L (3.5-5.1); TOTAL PROTEIN 7.4 gm/dL (6.4-8.2)
[2020-07-17 07:21] LABS: BASOPHILS 1 % (0-1); PLATELET SUFFICIENCY NORMAL (NORMAL); TOTAL CELLS COUNTED 100 #CELLS
[2020-07-17 08:00] VITALS: BP 123/69
[2020-07-17 12:00] VITALS: BP 128/70
[2020-07-17 16:00] VITALS: BP 105/57
[2020-07-17 20:00] VITALS: BP 114/64
[2020-07-18] VITALS: BP 112/63
[2020-07-18 06:19] LABS: CREATININE 1.69 mg/dL (0.70-1.30); POTASSIUM 3.9 mmol/L (3.5-5.1)
[2020-07-18 06:21] LABS: BASO # 0.1 10*3/uL (0.0-0.1); BASO % 0.8 % (0.0-1.0); EOS # 0.2 10*3/uL (0.0-0.4); EOS % 1.8 % (1.0-4.0); HEMATOCRIT 42.5 % (42.0-52.0); LYMPH # 0.9 10*3/uL (1.3-4.4); LYMPH % 8.3 % (27.0-41.0); MEAN CELL VOLUME 87.8 fl (80.0-94.0); MEAN CORPUSCULAR HGB 28.1 pg (27.0-31.0); MONO # 1.2 10*3/uL (0.1-1.0); MONO % 10.6 % (3.0-9.0); NEUT # 8.7 10*3/uL (2.3-7.9); PLATELET COUNT AUTOMATED 357 10*3/uL (130-400); RED BLOOD COUNT 4.84 10*6/uL (4.50-5.90); RED CELL DISTRI WIDTH 13.2 % (0-14.5); WHITE BLOOD COUNT 11.2 10*3/uL (4.8-10.8)
[2020-07-18 08:00] VITALS: BP 144/70
[2020-07-18 12:00] VITALS: BP 131/68
[2020-07-18 16:00] VITALS: BP 133/68
[2020-07-18 20:00] VITALS: BP 160/82
[2020-07-19] VITALS: BP 145/67
[2020-07-19 08:28] VITALS: BP 121/74
[2020-07-19 11:57] VITALS: BP 128/77
[2020-07-19 16:43] VITALS: BP 124/79
[2020-07-19 20:00] VITALS: BP 141/83
[2020-07-20] VITALS (8 sets, daily range): BP systolic 138–167; BP diastolic 77–90
[2020-07-20 06:18] LABS: BASO # 0.1 10*3/uL (0.0-0.1); BASO % 1.1 % (0.0-1.0); EOS # 0.1 10*3/uL (0.0-0.4); EOS % 1.2 % (1.0-4.0); HEMATOCRIT 43.1 % (42.0-52.0); LYMPH # 0.5 10*3/uL (1.3-4.4); LYMPH % 4.5 % (27.0-41.0); MEAN CELL VOLUME 87.1 fl (80.0-94.0); MEAN CORPUSCULAR HGB 28.3 pg (27.0-31.0); MEAN CORPUSCULAR HGB CONC 32.5 g/dl (33.0-37.0); MEAN PLATELET VOLUME 11.5 fl (9.6-12.3); MONO # 0.6 10*3/uL (0.1-1.0); MONO % 5.5 % (3.0-9.0); NEUT # 9.8 10*3/uL (2.3-7.9); PLATELET COUNT AUTOMATED 396 10*3/uL (130-400); RED BLOOD COUNT 4.95 10*6/uL (4.50-5.90); RED CELL DISTRI WIDTH 13.2 % (0-14.5); WHITE BLOOD COUNT 11.2 10*3/uL (4.8-10.8)
[2020-07-21] VITALS: BP 149/81
[2020-07-21 08:01] VITALS: BP 154/90
[2020-07-21 09:52] VITALS: BP 144/86
[2020-07-21 11:08] VITALS: BP 143/91
[2020-07-21 15:52] VITALS: BP 150/77
[2020-07-21 20:00] VITALS: BP 163/88
[2020-07-22] VITALS (7 sets, daily range): BP systolic 119–160; BP diastolic 68–81
[2020-07-23 08:00] VITALS: BP 163/87
[2020-07-23 12:00] VITALS: BP 162/80
[2020-07-23] MEDS ORDERED: AUGMENTIN 875875 MG PO (14:38)
[2020-07-23 16:00] VITALS: BP 165/78
[2020-07-23 20:00] VITALS: BP 183/86
[2020-07-23 22:16] VITALS: BP 169/96
[2020-07-24 08:00] VITALS: BP 173/90
[2020-07-24 10:56] VITALS: BP 168/99
[2020-07-24 11:50] VITALS: BP 159/80
[2020-07-24 12:05] VITALS: BP 188/86
[2020-07-24 12:20] VITALS: BP 161/89
== END 2020-07-24 19:58 | DRG 871 ==
LOC: ED 18:51 → EDHOLD 21:12 → 5E 21:12
PROVIDERS: Hospitalist; Internal Medicine; Student in an Organized Health Care Education/Training Program; ADMIT Internal Medicine; ATTEND Internal Medicine
PROC: 0DJ08ZZ Inspection of Upper Intestinal Tract, Via Natural or Artificial Opening Endoscopic (ICD-10-PCS; 2020-07-20)
PROC: 0DH63UZ Insertion of Feeding Device into Stomach, Percutaneous Approach (ICD-10-PCS; principal; 2020-07-24)
DX: A41.9 Sepsis, unspecified organism (principal); J69.0 Pneumonitis due to inhalation of food and vomit; N17.0 Acute kidney failure with tubular necrosis; G93.41 Metabolic encephalopathy; N18.4 Chronic kidney disease, stage 4 (severe); K92.0 Hematemesis; N39.0 Urinary tract infection, site not specified; E44.0 Moderate protein-calorie malnutrition; E87.1 Hypo-osmolality and hyponatremia; F33.9 Major depressive disorder, recurrent, unspecified; Z20.822 Contact with and (suspected) exposure to COVID-19; D64.9 Anemia, unspecified; F41.1 Generalized anxiety disorder; I12.9 Hypertensive chronic kidney disease with stage 1 through stage 4 chronic kidney disease, or unspecified chronic kidney disease; E11.22 Type 2 diabetes mellitus with diabetic chronic kidney disease; I25.10 Atherosclerotic heart disease of native coronary artery without angina pectoris; R62.7 Adult failure to thrive; E11.65 Type 2 diabetes mellitus with hyperglycemia; W19.XXXA Unspecified fall, initial encounter; Y93.89 Activity, other specified; Y92.89 Other specified places as the place of occurrence of the external cause; Y99.8 Other external cause status; Z95.5 Presence of coronary angioplasty implant and graft; Z88.8 Allergy status to other drugs, medicaments and biological substances; Z80.1 Family history of malignant neoplasm of trachea, bronchus and lung; Z82.49 Family history of ischemic heart disease and other diseases of the circulatory system; Z80.0 Family history of malignant neoplasm of digestive organs; Z86.73 Personal history of transient ischemic attack (TIA), and cerebral infarction without residual deficits; Z79.82 Long term (current) use of aspirin; Z79.899 Other long term (current) drug therapy; Z79.4 Long term (current) use of insulin; Z68.27 Body mass index [BMI] 27.0-27.9, adult

== ENCOUNTER 2020-08-09 22:07 | Inpatient (IN) | payer MEDICARE ==
[~2020-08-09] VITALS: Ht 182.8 cm; Wt 89.8 kg
[2020-08-09] VITALS (11 sets, daily range): BP systolic 96–121; BP diastolic 63–73
[~2020-08-09 22:07] MED LIST changes: -ALPHAGAN P 10 M10 M1 OPH; +ALPHAGAN P 10 M10 M1 OS; +AUGMENTIN 875875 MG PO; +CHLORPROMAZINE25 M1 PO; +GLUCOTROL10 MG PEG; +HUMULIN R500 UNIT/1 SQ; +METOCLOPRAMIDE5 MG PEG
[2020-08-09 22:54] LABS: BASO # 0.1 10*3/uL (0.0-0.1); BASO % 0.8 % (0.0-1.0); EOS # 0.1 10*3/uL (0.0-0.4); EOS % 0.4 % (1.0-4.0); HEMATOCRIT 39.7 % (42.0-52.0); LYMPH # 0.7 10*3/uL (1.3-4.4); LYMPH % 5.5 % (27.0-41.0); MEAN CELL VOLUME 89.6 fl (80.0-94.0); MEAN CORPUSCULAR HGB 27.8 pg (27.0-31.0); MEAN PLATELET VOLUME 11.3 fl (9.6-12.3); MONO # 1.3 10*3/uL (0.1-1.0); MONO % 10.9 % (3.0-9.0); NEUT # 9.9 10*3/uL (2.3-7.9); PLATELET COUNT AUTOMATED 366 10*3/uL (130-400); RED BLOOD COUNT 4.43 10*6/uL (4.50-5.90); RED CELL DISTRI WIDTH 13.9 % (0-14.5); WHITE BLOOD COUNT 12.1 10*3/uL (4.8-10.8)
[2020-08-09 23:09] LABS: ALBUMIN 2.5 gm/dl (3.1-4.5); CREATININE 1.6 mg/dL (0.70-1.30); TOTAL PROTEIN 7.4 gm/dL (6.4-8.2)
[2020-08-09 23:13] LABS: ABG BASE EXCESS 7.6 mmol/L (-2.0-2.0); ARTERIAL BLOOD GAS PH 7.469 (7.35-7.45); ARTERIAL BLOOD GAS PO2 71.1 (80-90)
[2020-08-09 23:18] LABS: TROPONIN I 0.063 ng/ml (<0.045)
[2020-08-10] VITALS (11 sets, daily range): BP systolic 116–142; BP diastolic 58–80
[2020-08-10 00:32] LABS: BILIRUBIN Negative (Negative); BLOOD 1+ (Negative); CLARITY Clear (Clear); COLOR Yellow (Yellow); GLUCOSE Negative (Negative); KETONE Negative (Negative); LEUKO ESTERASE 1+ (Negative); NITRITE Negative (Negative)
[2020-08-10] MEDS ORDERED: DULCOLAX10 M1 R (07:59)
[2020-08-10] MEDS ORDERED: FLEET ENEMA 13133 ML R (08:02)
[2020-08-10] MEDS ORDERED: HALOPERIDOL1 MG PEG (08:04)
[2020-08-10] MEDS ORDERED: INSULIN LI100 UNIT/1 SQ (08:07)
[2020-08-10] MEDS ORDERED: LEVEMIR100 UNIT/1 SC (08:07)
[2020-08-10] MEDS ORDERED: MELATONIN5 M1 PEG (08:08)
[2020-08-10] MEDS ORDERED: METFORMIN HYDR500 MG PEG (08:09)
[2020-08-10] MEDS ORDERED: MOM30 M1 PEG (08:11)
[2020-08-10] MEDS ORDERED: VITAMIN D325 MC1 PEG (08:13)
[2020-08-10] MEDS ORDERED: XANAX0.25 MG PEG (08:15)
[2020-08-10] MEDS ORDERED: DIABETISOURCE PEG (08:17)
[2020-08-10] MEDS ORDERED: [UNRECOGNIZED DRUG - OTHER] PEG (08:18)
[2020-08-11] VITALS: BP 128/77
[2020-08-11 04:00] VITALS: BP 151/74
[2020-08-11 05:45] LABS: ALBUMIN 2.4 gm/dl (3.1-4.5); CREATININE 1.51 mg/dL (0.70-1.30); POTASSIUM 3.6 mmol/L (3.5-5.1); TOTAL PROTEIN 7.2 gm/dL (6.4-8.2)
[2020-08-11 05:53] LABS: BASO # 0.1 10*3/uL (0.0-0.1); BASO % 1.3 % (0.0-1.0); EOS # 0.1 10*3/uL (0.0-0.4); EOS % 1.3 % (1.0-4.0); HEMATOCRIT 38.6 % (42.0-52.0); LYMPH % 9.7 % (27.0-41.0); MEAN CELL VOLUME 90.8 fl (80.0-94.0); MEAN CORPUSCULAR HGB 28.5 pg (27.0-31.0); MEAN CORPUSCULAR HGB CONC 31.3 g/dl (33.0-37.0); MEAN PLATELET VOLUME 11.7 fl (9.6-12.3); MONO # 0.9 10*3/uL (0.1-1.0); MONO % 9.2 % (3.0-9.0); NEUT % 77.7 % (47.0-73.0); PLATELET COUNT AUTOMATED 381 10*3/uL (130-400); RED BLOOD COUNT 4.25 10*6/uL (4.50-5.90); RED CELL DISTRI WIDTH 13.9 % (0-14.5); WHITE BLOOD COUNT 10.3 10*3/uL (4.8-10.8)
[2020-08-11 08:00] VITALS: BP 144/75
[2020-08-11 12:00] VITALS: BP 126/70
[2020-08-11 16:00] VITALS: BP 142/72
[2020-08-11 20:00] VITALS: BP 152/71
[2020-08-12 00:01] VITALS: BP 119/68
[2020-08-12 04:00] VITALS: BP 135/69
[2020-08-12 06:04] LABS: CREATININE 1.43 mg/dL (0.70-1.30); POTASSIUM 3.6 mmol/L (3.5-5.1)
[2020-08-12 06:31] LABS: BASO # 0.1 10*3/uL (0.0-0.1); BASO % 1.4 % (0.0-1.0); EOS # 0.6 10*3/uL (0.0-0.4); EOS % 5.7 % (1.0-4.0); HEMATOCRIT 39.3 % (42.0-52.0); LYMPH # 1.1 10*3/uL (1.3-4.4); LYMPH % 11.8 % (27.0-41.0); MEAN CORPUSCULAR HGB CONC 30.8 g/dl (33.0-37.0); MEAN PLATELET VOLUME 11.8 fl (9.6-12.3); MONO # 0.8 10*3/uL (0.1-1.0); MONO % 8.1 % (3.0-9.0); NEUT # 6.9 10*3/uL (2.3-7.9); NEUT % 71.9 % (47.0-73.0); PLATELET COUNT AUTOMATED 372 10*3/uL (130-400); RED BLOOD COUNT 4.32 10*6/uL (4.50-5.90); RED CELL DISTRI WIDTH 13.9 % (0-14.5); WHITE BLOOD COUNT 9.6 10*3/uL (4.8-10.8)
[2020-08-12 08:00] VITALS: BP 140/68
[2020-08-12 12:00] VITALS: BP 136/68
[2020-08-12 15:07] LABS: MYCOPLASMA PNEUMONIAE IGG 185 U/mL (0-99); MYCOPLASMA PNEUMONIAE IGM <770 U/mL (0-769)
[2020-08-12 16:00] VITALS: BP 128/71
[2020-08-12 20:07] VITALS: BP 148/68
[2020-08-13] VITALS (7 sets, daily range): BP systolic 136–174; BP diastolic 72–85
[2020-08-13 05:57] LABS: ALBUMIN 2.1 gm/dl (3.1-4.5); ALKALINE PHOSPHATASE 65 U/L (45-117); CHLORIDE 115 mmol/L (98-107); CREATININE 1.12 mg/dL (0.70-1.30); POTASSIUM 3.4 mmol/L (3.5-5.1); SGOT/AST 10 IU/L (3-35); SGPT/ALT 21 U/L (12-78); SODIUM 148 mmol/L (136-145); TOTAL PROTEIN 6.7 gm/dL (6.4-8.2)
[2020-08-13 06:00] LABS: BUN 28 mg/dl (7-24)
[2020-08-14] VITALS: BP 126/70
[2020-08-14 05:45] LABS: BUN 21 mg/dl (7-24); CREATININE 1.07 mg/dL (0.70-1.30)
[2020-08-14 06:16] LABS: BASO # 0.1 10*3/uL (0.0-0.1); BASO % 1.2 % (0.0-1.0); EOS # 1.2 10*3/uL (0.0-0.4); EOS % 12.2 % (1.0-4.0); HEMATOCRIT 40.1 % (42.0-52.0); LYMPH # 1.2 10*3/uL (1.3-4.4); LYMPH % 11.9 % (27.0-41.0); MEAN CELL VOLUME 91.1 fl (80.0-94.0); MEAN CORPUSCULAR HGB CONC 30.7 g/dl (33.0-37.0); MEAN PLATELET VOLUME 11.7 fl (9.6-12.3); MONO # 0.8 10*3/uL (0.1-1.0); MONO % 7.9 % (3.0-9.0); NEUT # 6.4 10*3/uL (2.3-7.9); PLATELET COUNT AUTOMATED 344 10*3/uL (130-400); RED CELL DISTRI WIDTH 13.4 % (0-14.5); WHITE BLOOD COUNT 9.8 10*3/uL (4.8-10.8)
[2020-08-14 06:19] LABS: CHLORIDE 114 mmol/L (98-107); POTASSIUM 3.5 mmol/L (3.5-5.1); SODIUM 147 mmol/L (136-145)
[2020-08-14 08:00] VITALS: BP 152/87
[2020-08-14 08:05] VITALS: BP 150/80
[2020-08-14 12:00] VITALS: BP 109/64
[2020-08-14 16:00] VITALS: BP 119/62
[2020-08-14 20:00] VITALS: BP 132/69
[2020-08-15] VITALS: BP 140/65
[2020-08-15 04:00] VITALS: BP 146/78
[2020-08-15 05:45] LABS: BUN 22 mg/dl (7-24); CHLORIDE 112 mmol/L (98-107); CREATININE 1.11 mg/dL (0.70-1.30); POTASSIUM 3.5 mmol/L (3.5-5.1); SODIUM 145 mmol/L (136-145)
[2020-08-15 08:00] VITALS: BP 125/68
[2020-08-15 12:00] VITALS: BP 133/71
[2020-08-15 16:00] VITALS: BP 140/70
[2020-08-15 20:00] VITALS: BP 143/62
[2020-08-16] VITALS: BP 167/70
[2020-08-16 06:25] LABS: BUN 20 mg/dl (7-24); CHLORIDE 113 mmol/L (98-107); POTASSIUM 3.7 mmol/L (3.5-5.1); SODIUM 145 mmol/L (136-145)
[2020-08-16 06:27] LABS: CREATININE 0.97 mg/dL (0.70-1.30)
[2020-08-16 08:16] VITALS: BP 157/74
[2020-08-16 12:29] VITALS: BP 125/75
[2020-08-16 16:14] VITALS: BP 146/68
[2020-08-16 20:00] VITALS: BP 168/81
[2020-08-17] VITALS: BP 159/86
[2020-08-17 08:18] VITALS: BP 128/77
[2020-08-17] MEDS ORDERED: DEPAKENE S250 MG/5 M PEG (11:45)
[2020-08-17] MEDS ORDERED: CLONAZEPAM1 MG PO (11:45)
[2020-08-17 12:23] VITALS: BP 159/78
[2020-08-17] MEDS ORDERED: Bactroban Oint22 GM NAS (12:57)
[2020-08-17] MEDS ORDERED: MIRTAZAPINE15 M2 PEG (12:57)
== END 2020-08-17 14:52 | DRG 871 ==
LOC: ED 22:07 → EDHOLD 08-10 03:49 → ICCU 08-10 03:49 → 4E 08-15 13:39
PROVIDERS: Emergency Medicine; Hospitalist; Internal Medicine; Student in an Organized Health Care Education/Training Program; ADMIT Internal Medicine; ATTEND Internal Medicine
PROC: 5A09357 Assistance with Respiratory Ventilation, Less than 24 Consecutive Hours, Continuous Positive Airway Pressure (ICD-10-PCS; 2020-08-10)
PROC: 5A0945A Assistance with Respiratory Ventilation, 24-96 Consecutive Hours, High Flow/Velocity Cannula (ICD-10-PCS; 2020-08-10)
PROC: BD1BYZZ Fluoroscopy of Mouth/Oropharynx using Other Contrast (ICD-10-PCS; principal; 2020-08-12)
PROC: 5A0945A Assistance with Respiratory Ventilation, 24-96 Consecutive Hours, High Flow/Velocity Cannula (ICD-10-PCS; 2020-08-12)
PROC: 5A09357 Assistance with Respiratory Ventilation, Less than 24 Consecutive Hours, Continuous Positive Airway Pressure (ICD-10-PCS; 2020-08-12)
PROC: 5A0935A Assistance with Respiratory Ventilation, Less than 24 Consecutive Hours, High Flow/Velocity Cannula (ICD-10-PCS; 2020-08-15)
DX: A41.9 Sepsis, unspecified organism (principal); J69.0 Pneumonitis due to inhalation of food and vomit; J96.01 Acute respiratory failure with hypoxia; E43 Unspecified severe protein-calorie malnutrition; N17.0 Acute kidney failure with tubular necrosis; N30.01 Acute cystitis with hematuria; I24.8 Other forms of acute ischemic heart disease; F33.9 Major depressive disorder, recurrent, unspecified; R65.20 Severe sepsis without septic shock; D64.9 Anemia, unspecified; E11.65 Type 2 diabetes mellitus with hyperglycemia; R13.10 Dysphagia, unspecified; F41.1 Generalized anxiety disorder; N40.0 Benign prostatic hyperplasia without lower urinary tract symptoms; I25.10 Atherosclerotic heart disease of native coronary artery without angina pectoris; I12.9 Hypertensive chronic kidney disease with stage 1 through stage 4 chronic kidney disease, or unspecified chronic kidney disease; E11.22 Type 2 diabetes mellitus with diabetic chronic kidney disease; F63.9 Impulse disorder, unspecified; Z20.822 Contact with and (suspected) exposure to COVID-19; E83.41 Hypermagnesemia; Z86.73 Personal history of transient ischemic attack (TIA), and cerebral infarction without residual deficits; Z95.5 Presence of coronary angioplasty implant and graft; Z98.52 Vasectomy status; Z98.49 Cataract extraction status, unspecified eye; Z80.0 Family history of malignant neoplasm of digestive organs; Z80.1 Family history of malignant neoplasm of trachea, bronchus and lung; Z88.8 Allergy status to other drugs, medicaments and biological substances; Z79.899 Other long term (current) drug therapy; Z79.82 Long term (current) use of aspirin; Z93.1 Gastrostomy status; Z68.26 Body mass index [BMI] 26.0-26.9, adult; N18.30 Chronic kidney disease, stage 3 unspecified

== ENCOUNTER 2020-08-19 19:53 | Inpatient (IN) | payer MEDICARE ==
[~2020-08-19] VITALS: Ht 182.8 cm; Wt 83.2 kg
[~2020-08-19 19:53] MED LIST changes: +Bactroban Oint22 GM NAS; +CLONAZEPAM1 MG PO; +DEPAKENE S250 MG/5 M PEG; +DIABETISOURCE PEG; +DULCOLAX10 M1 R; +FLEET ENEMA 13133 ML R; +HALOPERIDOL1 MG PEG; +INSULIN LI100 UNIT/1 SQ; +LEVEMIR100 UNIT/1 SC; +MELATONIN5 M1 PEG; +METFORMIN HYDR500 MG PEG; +MIRTAZAPINE15 M2 PEG; +MOM30 M1 PEG; +VITAMIN D325 MC1 PEG; +XANAX0.25 MG PEG; +[UNRECOGNIZED DRUG - OTHER] PEG
[2020-08-19 19:56] VITALS: BP 125/68
[2020-08-19 20:09] LABS: BASO # 0.1 10*3/uL (0.0-0.1); BASO % 0.8 % (0.0-1.0); EOS # 0.5 10*3/uL (0.0-0.4); EOS % 3.9 % (1.0-4.0); HEMATOCRIT 38.5 % (42.0-52.0); LYMPH # 0.9 10*3/uL (1.3-4.4); LYMPH % 8.2 % (27.0-41.0); MEAN CELL VOLUME 87.5 fl (80.0-94.0); MEAN CORPUSCULAR HGB CONC 31.9 g/dl (33.0-37.0); MEAN PLATELET VOLUME 11.3 fl (9.6-12.3); MONO % 8.8 % (3.0-9.0); NEUT # 8.8 10*3/uL (2.3-7.9); NEUT % 76.2 % (47.0-73.0); PLATELET COUNT AUTOMATED 362 10*3/uL (130-400); RED CELL DISTRI WIDTH 14.1 % (0-14.5); WHITE BLOOD COUNT 11.5 10*3/uL (4.8-10.8)
[2020-08-19 20:28] LABS: ALBUMIN 2.3 gm/dl (3.1-4.5); ALKALINE PHOSPHATASE 85 U/L (45-117); BUN 20 mg/dl (7-24); CHLORIDE 106 mmol/L (98-107); CREATININE 1.08 mg/dL (0.70-1.30); POTASSIUM 3.9 mmol/L (3.5-5.1); SGOT/AST 47 IU/L (3-35); SGPT/ALT 66 U/L (12-78); SODIUM 141 mmol/L (136-145); TOTAL PROTEIN 7.5 gm/dL (6.4-8.2)
[2020-08-19 20:29] LABS: TROPONIN I 0.034 ng/ml (<0.045)
[2020-08-19 22:30] VITALS: BP 115/70
[2020-08-19 23:08] LABS: TROPONIN I 0.03 ng/ml (<0.045)
[2020-08-20 02:37] VITALS: BP 116/72
[2020-08-20 02:50] VITALS: BP 150/72
[2020-08-20 06:35] LABS: BASO # 0.1 10*3/uL (0.0-0.1); BASO % 0.7 % (0.0-1.0); EOS # 0.2 10*3/uL (0.0-0.4); EOS % 1.1 % (1.0-4.0); HEMATOCRIT 36.4 % (42.0-52.0); LYMPH # 0.9 10*3/uL (1.3-4.4); LYMPH % 6.7 % (27.0-41.0); MEAN CELL VOLUME 89.2 fl (80.0-94.0); MEAN CORPUSCULAR HGB 28.2 pg (27.0-31.0); MEAN CORPUSCULAR HGB CONC 31.6 g/dl (33.0-37.0); MEAN PLATELET VOLUME 11.7 fl (9.6-12.3); MONO # 1.2 10*3/uL (0.1-1.0); MONO % 8.6 % (3.0-9.0); NEUT % 81.6 % (47.0-73.0); PLATELET COUNT AUTOMATED 350 10*3/uL (130-400); RED BLOOD COUNT 4.08 10*6/uL (4.50-5.90); RED CELL DISTRI WIDTH 14.3 % (0-14.5); WHITE BLOOD COUNT 13.5 10*3/uL (4.8-10.8)
[2020-08-20 06:59] LABS: ALBUMIN 2.2 gm/dl (3.1-4.5); BUN 21 mg/dl (7-24); CHLORIDE 108 mmol/L (98-107); CREATININE 1.04 mg/dL (0.70-1.30); POTASSIUM 4.2 mmol/L (3.5-5.1); SGOT/AST 43 IU/L (3-35); SGPT/ALT 65 U/L (12-78); SODIUM 141 mmol/L (136-145); TOTAL PROTEIN 7.1 gm/dL (6.4-8.2)
[2020-08-20 07:00] LABS: ALKALINE PHOSPHATASE 68 U/L (45-117)
[2020-08-20 08:00] VITALS: BP 149/68
[2020-08-20 12:00] VITALS: BP 131/57
[2020-08-20 16:00] VITALS: BP 115/63
[2020-08-20 20:00] VITALS: BP 133/62
== END 2020-08-20 20:51 | disposition hospice, inpatient (51) | DRG 205 ==
LOC: ED 19:53 → 5E 22:46 → EDHOLD 22:46 → 5E 08-20 01:09
PROVIDERS: Emergency Medicine; Hospitalist; ADMIT Internal Medicine; ATTEND Internal Medicine
PROC: 5A0935A Assistance with Respiratory Ventilation, Less than 24 Consecutive Hours, High Flow/Velocity Cannula (ICD-10-PCS; principal; 2020-08-20)
DX: T17.818A Gastric contents in other parts of respiratory tract causing other injury, initial encounter (principal); J69.0 Pneumonitis due to inhalation of food and vomit; J96.01 Acute respiratory failure with hypoxia; E43 Unspecified severe protein-calorie malnutrition; Z68.24 Body mass index [BMI] 24.0-24.9, adult; D64.9 Anemia, unspecified; R74.01 Elevation of levels of liver transaminase levels; F32.9 Major depressive disorder, single episode, unspecified; I25.10 Atherosclerotic heart disease of native coronary artery without angina pectoris; R13.10 Dysphagia, unspecified; N40.0 Benign prostatic hyperplasia without lower urinary tract symptoms; H42 Glaucoma in diseases classified elsewhere; I12.9 Hypertensive chronic kidney disease with stage 1 through stage 4 chronic kidney disease, or unspecified chronic kidney disease; E11.22 Type 2 diabetes mellitus with diabetic chronic kidney disease; N18.30 Chronic kidney disease, stage 3 unspecified; E11.65 Type 2 diabetes mellitus with hyperglycemia; Z51.5 Encounter for palliative care; Z66 Do not resuscitate; F41.1 Generalized anxiety disorder; X58.XXXA Exposure to other specified factors, initial encounter; Z86.73 Personal history of transient ischemic attack (TIA), and cerebral infarction without residual deficits; Z79.4 Long term (current) use of insulin; Z98.52 Vasectomy status; Z95.5 Presence of coronary angioplasty implant and graft; Z80.0 Family history of malignant neoplasm of digestive organs; Z80.1 Family history of malignant neoplasm of trachea, bronchus and lung; Z82.49 Family history of ischemic heart disease and other diseases of the circulatory system; Z88.8 Allergy status to other drugs, medicaments and biological substances; Z79.82 Long term (current) use of aspirin; Z79.899 Other long term (current) drug therapy; Z98.42 Cataract extraction status, left eye; Y93.89 Activity, other specified; Y92.89 Other specified places as the place of occurrence of the external cause; Y99.8 Other external cause status

== ENCOUNTER 2020-08-20 20:53 | Inpatient (IN) | payer OTHER, MEDICARE ==
[~2020-08-20] VITALS: Ht 180.3 cm; Wt 83.0 kg
[2020-08-20 21:30] VITALS: BP 130/64
[2020-08-21] VITALS: BP 138/60
[2020-08-21 08:00] VITALS: BP 146/70
[2020-08-21 16:00] VITALS: BP 137/74
[2020-08-21 20:00] VITALS: BP 164/76
[2020-08-22] VITALS: BP 120/56
[2020-08-22 08:00] VITALS: BP 126/68
[2020-08-22 16:00] VITALS: BP 130/69
[2020-08-23] VITALS: BP 160/72
[2020-08-23 08:00] VITALS: BP 157/79
[2020-08-23 16:00] VITALS: BP 168/79
[2020-08-24] VITALS: BP 154/68
[2020-08-24 08:00] VITALS: BP 153/64
[2020-08-24] MEDS ORDERED: ACETAMINOP325 MG/101 PEG (10:34)
[2020-08-24] MEDS ORDERED: MORPHINE S10 MG/0.2 PEG (10:34)
[2020-08-24] MEDS ORDERED: CLONAZEPAM0.5 M2 PEG ×2 (10:34)
[2020-08-24] MEDS ORDERED: DULCOLAX10 M1 R (10:34)
== END 2020-08-24 12:30 | disposition hospice, inpatient (51) | DRG 177 ==
LOC: 5E 20:53
PROVIDERS: ADMIT Internal Medicine; ATTEND Internal Medicine
DX: J69.0 Pneumonitis due to inhalation of food and vomit (principal); J96.01 Acute respiratory failure with hypoxia; E43 Unspecified severe protein-calorie malnutrition; D64.9 Anemia, unspecified; T17.910A Gastric contents in respiratory tract, part unspecified causing asphyxiation, initial encounter; D72.829 Elevated white blood cell count, unspecified; R74.01 Elevation of levels of liver transaminase levels; I10 Essential (primary) hypertension; E11.65 Type 2 diabetes mellitus with hyperglycemia; F32.9 Major depressive disorder, single episode, unspecified; F41.1 Generalized anxiety disorder; I25.10 Atherosclerotic heart disease of native coronary artery without angina pectoris; R13.10 Dysphagia, unspecified; N40.0 Benign prostatic hyperplasia without lower urinary tract symptoms; Z51.5 Encounter for palliative care; Z88.8 Allergy status to other drugs, medicaments and biological substances; Z79.4 Long term (current) use of insulin; Z86.73 Personal history of transient ischemic attack (TIA), and cerebral infarction without residual deficits; Z68.25 Body mass index [BMI] 25.0-25.9, adult